=== PATIENT | male | born 1965 | race Caucasian/White ===

== ENCOUNTER 2017-11-07 00:46 | Emergency (ER) | payer OTHER ==
[2017-11-07 02:25] LABS: TROPONIN-I < 0.010 ng/ml (0.000-0.120)
== END 2017-11-07 03:37 | disposition home or self-care (01) ==
LOC: E/R 00:46
DX: R07.2 Precordial pain (principal); R10.13 Epigastric pain
CPT/HCPCS: 71045; 84484; 93005; 99285-25